=== PATIENT | male | born 1965 | race Caucasian/White ===

== ENCOUNTER 2016-11-05 21:40 | Emergency (ER) | payer OTHER ==
[~2016-11-05] VITALS: Ht 167.6 cm; Wt 108.9 kg
[2016-11-05 21:40] VITALS: BP 151/107; PULSE 104; RESP 18; TEMP 97.8; O2SAT 99
--- NOTE | 2016-11-05 21:40 | NUR ---
Placed in room 04 . Placed on secured entrance monitor, blood pressure machine and pulse oximeter. To gown for exam. Side rails up. Report given to QUETA Chaidez.
--- NOTE | 2016-11-05 21:40 | NUR ---
Pt states that he was at [facility] getting [facility] for chronic ETOH problem and had a mechanical trip and fall on the curb at that facility. Pt admitted to having "10 shots of vodka and two of Xanax today." Denies KO. Pt is AAOx4. No lethargy. Pupils PERRL. Pt has a 12 cm alvusion on the anterior side of the forehead. Pt placed on cardiac rehabilitation program director and will continue to monitor. No other injuries or complaints mentioned/noted. No distress noted.
--- NOTE | 2016-11-05 21:45 | NUR ---
ER at bedside examining patient.
[2016-11-05] MEDS ORDERED: LIDOCAINE 1%, 20 ML MDV 20 ML ONE (21:57)
[2016-11-05] MEDS ORDERED: BACITRACIN 1 GM OINT TP ONE (22:00)
[2016-11-05] MEDS ORDERED: LIDOCAINE 1% 10 MG/ML, 20 ML MDV IJ ONE (22:00)
[2016-11-05] MEDS ORDERED: ACETAMINOPHEN 500 MG TABLET PO ONE (22:30)
[2016-11-05 22:43] LABS: HEMATOCRIT 49.7 % (36-54); HEMOGLOBIN 16.9 g/dL (14.0-18.0); MEAN CORPUSCULAR HEMOGLOBIN 34 pg (27-31); MEAN CORPUSCULAR HGB CONC 34 % (32-36); MEAN CORPUSCULAR VOLUME 99 fL (79.0-98.0); PLATELET COUNT (AUTO) 304 K/uL (130-430); RED BLOOD CELL COUNT(AUTO) 5.02 MIL/uL (4.2-6.2); RED CELL DISTRIBUTION WIDTH 12.9 % (9.0-15.0); WHITE BLOOD COUNT (AUTO) 7.6 K/uL (4.8-10.8)
[2016-11-05] MEDS ORDERED: DIPH-TET-PERTUS Vaccine 0.5 ML VIAL (ADACEL) IM ONE (22:45)
[2016-11-05 23:06] LABS: BILIRUBIN,URINE NEGATIVE (NEGATIVE); BLOOD, URINE 1+ (NEGATIVE); CLARITY/URINE CLEAR (CLEAR); COLOR,URINE YELLOW (YELLOW); GLUCOSE,URINE NEGATIVE (NEGATIVE); KETONES,URINE TRACE (NEGATIVE); LEUKOCYTE ESTERASE ,URINE NEGATIVE (NEGATIVE); NITRITE, URINE NEGATIVE (NEGATIVE); PROTEIN URINE NEGATIVE (NEGATIVE); UROBILINOGEN,URINE 0.2 (0.2-1.0)
[2016-11-05 23:48] LABS: CALCIUM 8.1 mg/dL (8.4-11.0); CREATININE 0.81 mg/dL (0.55-1.30); POTASSIUM 4.2 mmol/L (3.5-5.1)
[2016-11-05 23:50] VITALS: BP 145/80; PULSE 78; RESP 18; TEMP 97.8; O2SAT 99
--- NOTE | 2016-11-05 23:50 | NUR ---
Patient given written and verbal discharge instructions and verbalizes understanding. ER MD discussed with patient the results and treatment provided. Patient in stable condition. ID arm band removed. Patient educated on pain management and to follow up with PMD. Pain Scale 0/10. Opportunity for questions provided and answered.
[2016-11-05 23:55] LABS: BACTERIA,URINE RARE /HPF (None Seen); MUCUS,URINE 1+ /LPF (None Seen); RBC,URINE 0-3 /HPF (0-3); WBC,URINE 0-3 /HPF (0-3)
[2016-11-05 23:57] LABS: ALBUMIN 3.7 g/dL (3.4-4.8); TOTAL BILIRUBIN 0.4 mg/dL (0.0-1.0); TOTAL PROTEIN, SERUM 7.8 g/dL (6.4-8.3)
[2016-11-06 00:09] LABS: BASOPHILS % (MANUAL) 0 % (0-2); EOSINOPHILS % (MANUAL) 3 % (0-7); LYMPHOCYTES % (MANUAL) 33 % (20-46); MONOCYTES % (MANUAL) 8 % (0-11)
[2016-11-06 00:11] LABS: BARBITURATE, URINE NEGATIVE (NEG <=200); BENZODIAZEPINE, URINE POSITIVE (NEG <=150); CANNABINOID, URINE POSITIVE (NEG <=50); COCAINE, URINE NEGATIVE (NEG <=150); METHAMPHETAMINES SCREEN,URINE NEGATIVE (NEG <=500); OPIATE, URINE NEGATIVE (NEG <=100); PHENCYCLIDINE SCREEN,URINE NEGATIVE (NEG <=25); UR TRICYCLIC ANTIDEPRESSANTS NEGATIVE (NEG <=300); URINE AMPHETAMINE NEGATIVE (NEG <=500); URINE METHADONE NEGATIVE (NEG <=200); URINE OXYCODONE SCREEN NEGATIVE (NEG <=100); URINE PROPOXYPHENE SCREEN NEGATIVE (NEG <=300)
--- NOTE | 2016-11-06 00:47 | NUR ---
Gave report and faxed labs to [facility] at [place].
== END 2016-11-05 23:50 | disposition home or self-care (01) ==
LOC: SED 21:40
DX: S01.01XA Laceration without foreign body of scalp, initial encounter (principal); F10.229 Alcohol dependence with intoxication, unspecified; I10 Essential (primary) hypertension; W18.30XA Fall on same level, unspecified, initial encounter; Y93.89 Activity, other specified; Y99.8 Other external cause status; Y92.89 Other specified places as the place of occurrence of the external cause
CPT/HCPCS: 12004; 36415; 80053; 80307; 81000; 85007; 85027; 90471; 90715; 99284; G0482; J2001